=== PATIENT | male | born 1970 | race Caucasian/White ===

== ENCOUNTER 2017-01-10 14:25 | Inpatient (IN) | payer SELFPAY ==
[2017-01-10] MEDS ORDERED: Iodixanol* (CONTRAST) 320 MG/ML 100 ML SDV IV ONE (14:46)
[2017-01-10 15:12] LABS: Hematocrit 45 % (42-52); Mean Corpuscular Volume 87 fL (80-94); Mean Platelet Volume 9 um3 (7.4-10.4); Red Blood Count 5.16 10^6/ul (4.0-5.4); Red Cell Distribution Width 14 % (10.5-15); White Blood Count 6.9 10^3/ul (3.5-10.8)
--- NOTE | 2017-01-10 15:18 | RAD ---
INDICATION: Acute neurologic changes. COMPARISON: None. TECHNIQUE: Contiguous axial sections of the brain were obtained from the skull base to the vertex without contrast. FINDINGS: The ventricles, cisterns and sulci are within normal limits. The bernardo-white matter differentiation is adequately maintained and there is no sulcal effacement. No significant focal abnormality or mass effect is present. There is no evidence for intracranial hemorrhage. No significant focal osseous abnormality is present. The visualized portion of the paranasal sinuses and mastoid air cells appear clear. IMPRESSION: Normal CT of the brain. Normal findings were conveyed to Dr. Larose over the telephone at 1513 hours on January 10, 2017.
[2017-01-10 15:24] LABS: Comments Flag Yes
[2017-01-10 15:28] LABS: Add Diff/Slide Review? Slide Review Added; Hemoglobin 15.1 g/dl (14.0-18.0); Mean Corpuscular HGB Conc 34 g/dl (31-36); Mean Corpuscular Hemoglobin 29 pg (27-31)
[2017-01-10] MEDS ORDERED: Aspirin TAB* 325 MG PO ONE (15:31)
--- NOTE | 2017-01-10 15:36 | RAD ---
CPT II: CPT II Codes: 3100F INDICATION: Expressive aphasia and left-sided weakness. COMPARISON: Same day noncontrast CT of the brain that did not show any acute abnormalities. TECHNIQUE: A CT angiogram of the head and neck was performed with 80 cc of Visipaque 320. Contiguous axial sections were obtained from the thoracic inlet through the [place]. Images were reconstructed in the sagittal, coronal planes and in a 3-D volume rendered format. The distal cervical internal carotid artery diameter is used as the denominater for stenosis measurement. CTA NECK: The common and internal carotid arteries are patent without hemodynamically significant stenosis. Right: Below the bifurcation the common carotid artery measures 7 mm in diameter and the proximal internal carotid artery also measures 7 mm in diameter yielding 0% stenosis. Left: Immediately below the carotid bifurcation the common carotid artery measures 7 mm in diameter and the proximal internal carotid artery ostial measures 7 mm in diameter yielding 0% stenosis. The vertebral arteries are patent without gross abnormality. There is nonspecific straightening of the normal cervical lordosis as well as mild degenerative changes including loss of intervertebral disc height at multiple levels. CTA of the brain: The internal carotid, anterior and middle cerebral arteries appear are patent without high grade stenosis or occlusion. The vertebral, basilar and posterior cerebral arteries appear patent without high grade stenosis or occlusion. The [place] is complete with diminutive but patent bilateral posterior communicating arteries identified. No focal luminal filling defect, aneurysm or vascular malformation is seen. IMPRESSION: Normal CT angiography of the head and neck.
--- NOTE | 2017-01-10 15:41 | RAD ---
INDICATION: Expressive aphasia COMPARISON: None. TECHNIQUE: Single AP portable view of the chest was obtained. FINDINGS: Image quality is compromised due to the relative inferiority of a portable chest x-ray. The heart and mediastinum exhibit normal size and contour. The lungs are grossly clear. There is no evidence of a large pleural effusion. Visualized bones are normal for the patient's age. IMPRESSION: No radiographic evidence for acute cardiopulmonary abnormality on this portable chest x-ray.
[2017-01-10 15:45] LABS: Albumin 4.8 g/dL (3.2-5.2); Calcium 9.2 mg/dL (8.6-10.3); EGFR African American 65.1 (>60); EGFR Non-African American 50.6 (>60); Globulin 2.1 g/dL (2-4); HDL Cholesterol 27.5 mg/dL; Total Bilirubin 0.9 mg/dL (0.2-1.0); Total Protein 6.9 g/dL (6.4-8.9)
[2017-01-10 15:51] LABS: Potassium 6.3 mmol/L (3.5-5.0)
[2017-01-10] MEDS: NS 0.9% 1000 ML* 2,000 ML IV ONE ×2 (15:59→17:02)
[2017-01-10 16:24] LABS: Albumin 4.9 g/dL (3.2-5.2); Calcium 9.3 mg/dL (8.6-10.3); EGFR African American 56.3 (>60); EGFR Non-African American 43.8 (>60); Globulin 2.2 g/dL (2-4); Total Protein 7.1 g/dL (6.4-8.9)
[2017-01-10 16:38] LABS: Total Bilirubin 0.7 mg/dL (0.2-1.0)
[2017-01-10] MEDS ORDERED: Insulin REGULAR(*) 1 UNITS UNIT IV PUSH ONE ×2 (16:52→20:17)
[2017-01-10] MEDS ORDERED: Sodium Polystyrene ORAL.SOL* 15 GM/60 ML BTL PO ONE (16:56)
[2017-01-10] MEDS ORDERED: Sodium Chloride 3% HYPERTONIC* 500 ML IVPB ONE (17:19)
[2017-01-10] MEDS ORDERED: NS 0.9% 1000 ML* 1,000 ML IV ONE ×3 (17:37→20:22)
--- NOTE | 2017-01-10 17:39 | CONSULT ---
Consult Consult: 01/10/17 neurology consult 46 year old RHM, HTN, DM, p/w slowed, abnormal speech today. He also had some motor issues this afternoon; he got into the shower by himself, then had trouble figuring out how to get out of the tub (with either leg), without any clear focal deficit. He denies bulbar, visual, hearing issues, sensory or focal motor problems. He denies bowel or bladder issues; his suggests some recent loose stools, without corky diarrhea or emesis. He went to [facility] yesterday with similar speech complaints, and apparently had a negative head CT and labs (report not available directly but relayed per discussion with ED). His symptoms resolved after about an hour and he was discharged. 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; accompanied in ED by and friends ROS - 10 point review as per hpi, otherwise negative general Examination: no apparent distress, no edema, male of stated age Neurologic Examination Mental Status: alert and oriented; affect reactive, no clear neglect, fluent speech, no corky dysarthria but speech slowed and affected Cranial Nerves: Funduscopy with sharp disc right vs left not well appreciated; II-XII intact save < 1mm pupil asymmetry, both reactive, no ptosis; lindsay full to confrontation Motor: normal bulk, tone and power; initially held left leg out stiffly but had no weakness or tone asymmetry; no drift or tremor Sensory: vibration and touch are intact Reflexes: 2 throughout symmetrically. Plantar responses are equivocal to flexor ; Maya signs absent Coordination: finger to nose is accurate but psychomotor retarded bilaterally Gait: deferred Serologies; returned during eval, w/ Na 119, K 6.3, then 7 on repeat; bun/cr 16/.7; AST 100 ; CBC ok In 03/21, Na 132, aic 14.6, otherwise chem, LFTs were fine Imaging (done at discretion of ED): - Head CT reviewed and negative - CTA head and neck reviewed and negative - Cxr neg Impression: 46 year old uncontrolled DM, p/w psychomotor retarded speech (and ? 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 His 'neuro' issues are likely part of his toxic metabolic picture; there is no evidence of a primary or focal FERRYBOAT OPERATOR HELPER process; correction of his Na should be undertaken slowly to avoid risk of CPM.
[2017-01-10 17:44] LABS: TSH (Thyroid Stimulating Horm) 1.63 mcIU/mL (0.34-5.60)
[2017-01-10] MEDS ORDERED: Dextrose 50% Syringe 50 ML* 25 GM/50 ML SYRINGE IV PUSH PRN (17:50)
[2017-01-10 18:23] LABS: Urine Bilirubin Negative (Negative); Urine Glucose 3+(>=500 mg/dL) (Negative); Urine Nitrite Negative (Negative)
--- NOTE | 2017-01-10 18:45 | ED ---
I, Oh,Angelita, scribed for Todd Larose MD on 01/10/17 at 1444 . Neurological HPI - HPI Summary HPI Summary: This 46 y/o male presents to ED via ambulance for stroke like symptoms since today AM. Positive bilat hand numbness/tingling. Pt is noted with garbled/ stuttered speech. Family member present at bedside reports bilat hand numbness/ tingling and lower extremities weakness, reporting that pt had trouble getting into bathtub on his own this morning. Pt was seen at [facility] yesterday for "garbled speech", where he had CT Brain taken and had CVA r/o. Pt was sent discharged with dx of panic attack and anxiety. PMHx includes DM type II and HTN. Pt is nonsmoker and nondrinker. 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 Onset/Duration: Sudden Onset Timing: Constant Neurological Deficit Location: Generalized Character: Numbness/Tingling - bilat hands, Motor Weakness, Impaired Speech - Allergy/Home Medications Allergies/Adverse Reactions: Allergies Allergy/AdvReac Type Severity Reaction Status Date / Time No Known Allergies Allergy Verified 01/10/17 15:14 Home Medications: Home Medications Ibuprofen 800 mg PO PRN 01/10/17 [History] Lisinopril/HCTZ 06/17.5(NF) [Zestoretic 06/17.5(NF)] 1 tab PO DAILY 01/10/17 [ History Confirmed 01/10/17] Metformin HCl [Glucophage] 500 mg PO BID 01/10/17 [History Confirmed 01/10/17] Multiple Vitamins W/ Minerals [Multivitamin Adults] 1 tab PO DAILY 01/10/17 [ History Confirmed 01/10/17] PMH/Surg Hx/FS Hx/Imm Hx Endocrine/Hematology History: Reports: Hx Diabetes Cardiovascular History: Reports: Hx Hypertension - Family History Known Family History: Positive: Hypertension - Social History Alcohol Use: None Hx Substance Use: No Substance Use Type: Reports: None Hx Tobacco Use: No Smoking Status (MU): Never Smoked Tobacco Review of Systems Negative: Fever Positive: Weakness - BLE and bilat hands, Paresthesia - numbness/tingling at bilat hands, Slurred Speech All Other Systems Reviewed And Are Negative: Yes Physical Exam - Summary Physical Exam Summary: The patient is well-nourished in no acute distress and in no acute pain. The skin is warm and dry and skin color reflects adequate perfusion. HEENT: The head is normocephalic and atraumatic. The pupils are equal and reactive. The conjunctivae are clear and without drainage. Nares are patent and without drainage. Mouth reveals moist mucous membranes and the throat is without erythema and exudate. The external ears are intact. The ear canals are patent and without drainage. The tympanic membranes are intact. EOMI. Neck is supple with full range of motion and non-tender. There are no carotid bruits. There is no neck vein distension. Respiratory: Chest is non-tender. Lungs are clear to auscultation and breath sounds are symmetrical and equal. Cardiovascular: Hear is regular rate and rhythm. There is no murmur or rub auscultated. There is no peripheral edema and pulses are symmetrical and equal. Abdomen: The abdomen is obese, soft and non-tender. There are normal bowel sounds heard in all four quadrants and there is no organomegaly palpated. Musculoskeletal: There is no back pain noted. Extremities are non-tender with full range of motion. There is good capillary refill. There is no peripheral edema or calf tenderness elicited. Negative babinski. Neurological: Patient is alert and oriented to person and time. Mild, inconsistent weakness with motor strength with LUE and LLE. Mild difficulty with LEFT finger to nose. Normal ankle to heel. Cranial nerves III-XII are grossly intact. Expressive aphasia with stuttered speech. No facial asymmetry. Stutters some words. Psychiatric: The patient has an appropriate affect and does not exhibit any anxiety or depression. Triage Information Reviewed: Yes Vital Signs On Initial Exam: Initial Vitals BP 167/96 01/10/17 14:31 Vital Signs Reviewed: Yes Diagnostics - Vital Signs Vital Signs Temp Pulse Resp BP Pulse Ox 01/10/17 16:30 97 21 149/84 95 01/10/17 16:00 104 24 132/86 94 01/10/17 15:30 105 20 143/94 95 01/10/17 15:20 94 01/10/17 15:12 27 156/98 01/10/17 15:11 98.4 F 98 20 155/98 94 01/10/17 15:02 102 32 93 01/10/17 14:40 103 23 94 01/10/17 14:38 95 32 143/84 95 01/10/17 14:33 111 89 01/10/17 14:31 167/96 - Laboratory Lab Results: Lab Results 01/10/17 01/10/17 01/10/17 Range/Units 15:04 15:04 15:04 WBC 6.9 (3.5-10.8) 10^3/ul RBC 5.16 (4.0-5.4) 10^6/ul Hgb 15.1 (14.0-18.0) g/dl Hct 45 (42-52) % MCV 87 (80-94) fL MCH 29 (27-31) pg MCHC 34 (31-36) g/dl RDW 14 (10.5-15) % Plt Count 183 (150-450) 10^3/ul MPV 9 (7.4-10.4) um3 Neut % (Auto) 57.7 (38-83) % Lymph % (Auto) 31.3 (25-47) % Routt % (Auto) 7.6 (1-9) % Eos % (Auto) 1.7 (0-6) % Baso % (Auto) 1.7 (0-2) % Absolute Neuts (auto) 4.0 (1.5-7.7) 10^3/ul Absolute Lymphs (auto) 2.2 (1.0-4.8) 10^3/ul Absolute Monos (auto) 0.5 (0-0.8) 10^3/ul Absolute Eos (auto) 0.1 (0-0.6) 10^3/ul Absolute Basos (auto) 0.1 (0-0.2) 10^3/ul Absolute Nucleated RBC 0.02 10^3/ul Nucleated RBC % 0.3 Sodium 119 L* (133-145) mmol/L Potassium 6.3 H* (3.5-5.0) mmol/L Chloride 91 L (101-111) mmol/L Carbon Dioxide 18 L (22-32) mmol/L Anion Gap 10 (2-11) mmol/L BUN 16 (6-24) mg/dL Creatinine 1.50 H (0.67-1.17) mg/dL Est GFR ( Amer) 65.1 (>60) Est GFR (Non-Af Amer) 50.6 (>60) BUN/Creatinine Ratio 10.7 (8-20) Glucose 228 H (70-100) mg/dL POC Glucose (mg/dL) (74-106) mg/dL Lactic Acid 3.3 H* (0.5-2.0) mmol/L Calcium 9.2 (8.6-10.3) mg/dL Total Bilirubin 0.90 (0.2-1.0) mg/dL AST 79 H (13-39) U/L ALT 23 (7-52) U/L Alkaline Phosphatase 57 (34-104) U/L Troponin I 0.00 (<0.04) ng/mL Total Protein 6.9 (6.4-8.9) g/dL Albumin 4.8 (3.2-5.2) g/dL Globulin 2.1 (2-4) g/dL Albumin/Globulin Ratio 2.3 (1-3) Triglycerides 4675 mg/dL Cholesterol 349 mg/dL LDL Cholesterol mg/dL HDL Cholesterol 27.5 mg/dL Lipase (11.0-82.0) U/L TSH 1.63 (0.34-5.60) mcIU/mL Cortisol 13.99 mcg/dL Blood Type Antibody Screen 01/10/17 01/10/17 01/10/17 Range/Units 15:04 15:33 16:00 WBC (3.5-10.8) 10^3/ul RBC (4.0-5.4) 10^6/ul Hgb (14.0-18.0) g/dl Hct (42-52) % MCV (80-94) fL MCH (27-31) pg MCHC (31-36) g/dl RDW (10.5-15) % Plt Count (150-450) 10^3/ul MPV (7.4-10.4) um3 Neut % (Auto) (38-83) % Lymph % (Auto) (25-47) % Routt % (Auto) (1-9) % Eos % (Auto) (0-6) % Baso % (Auto) (0-2) % Absolute Neuts (auto) (1.5-7.7) 10^3/ul Absolute Lymphs (auto) (1.0-4.8) 10^3/ul Absolute Monos (auto) (0-0.8) 10^3/ul Absolute Eos (auto) (0-0.6) 10^3/ul Absolute Basos (auto) (0-0.2) 10^3/ul Absolute Nucleated RBC 10^3/ul Nucleated RBC % Sodium 120 L (133-145) mmol/L Potassium 7.0 H* (3.5-5.0) mmol/L Chloride 91 L (101-111) mmol/L Carbon Dioxide 19 L (22-32) mmol/L Anion Gap 10 (2-11) mmol/L BUN 16 (6-24) mg/dL Creatinine 1.70 H (0.67-1.17) mg/dL Est GFR ( Amer) 56.3 (>60) Est GFR (Non-Af Amer) 43.8 (>60) BUN/Creatinine Ratio 9.4 (8-20) Glucose 240 H (70-100) mg/dL POC Glucose (mg/dL) 297 H (74-106) mg/dL Lactic Acid (0.5-2.0) mmol/L Calcium 9.3 (8.6-10.3) mg/dL Total Bilirubin 0.70 (0.2-1.0) mg/dL AST 102 H (13-39) U/L ALT 25 (7-52) U/L Alkaline Phosphatase 72 (34-104) U/L Troponin I (<0.04) ng/mL Total Protein 7.1 (6.4-8.9) g/dL Albumin 4.9 (3.2-5.2) g/dL Globulin 2.2 (2-4) g/dL Albumin/Globulin Ratio 2.2 (1-3) Triglycerides mg/dL Cholesterol mg/dL LDL Cholesterol mg/dL HDL Cholesterol mg/dL Lipase 112 H (11.0-82.0) U/L TSH (0.34-5.60) mcIU/mL Cortisol mcg/dL Blood Type O Positive Antibody Screen Negative Result Diagrams: 01/10/17 15:04 01/10/17 16:00 Lab Statement: Any lab studies that have been ordered have been reviewed, and results considered in the medical decision making process. - Radiology CXR Xray Interpretation: No Acute Changes Radiology Interpretation Completed By: Radiologist - CT CTA CT Interpretation: No Acute Changes CT Interpretation Completed By: Radiologist Brain CT Interpretation: No Acute Changes CT Interpretation Completed By: Radiologist NIH Scale - NIH Scale Level of Consciousness: Alert/Keenly Responsive Ask Patient the Month and His/Her Age: Both Correct Ask Pt to Open/Close Eyes and Survey Engineer/Release Non-Paretic Hand: Both Correctly Best Gaze (Only Horizontal Eye Movement): Normal Visual Field Testing: No Visual Loss Facial Paresis-Pt to Smile & Close Eyes or Grimace Symmetry: Normal/Symmetrical Motor Function - Right Arm: No Drift-Holds 10 Seconds Motor Function - Left Arm: No Drift-Holds 10 Seconds Motor Function - Right Leg: No Drift-Holds 10 Seconds Motor Function - Left Leg: No Drift-Holds 10 Seconds Limb Ataxia-Must be out of Proportion to Weakness Present: Present in One Limb Sensory (Use Pinprick to Test Arms/Legs/Trunk/Face): Normal Best Language (Describe Picture, Name Items): Some Loss Dysarthria (Read Several Words): Slurs Some Words Extinction and Inattention: No Abnormality Total Score: 3 Re-Evaluation - Re-Evaluation First Eval Re-Evaluation Time: 15:16 Comment: Persistent LEFT finger to nose. Course/Dx - Course Assessment/Plan: This 46 y/o male presents to ED via ambulance for "stroke-like symptoms" since today AM. Pt was seen yesterday at [facility] for garbled speech and discharged home with dx of anxiety attack and normal CT. Pt presents today with feeling "weak on legs" and bilat hands numbness/tingling. Upon examination pt showed incosistent weakness at LUE and LLE. NIH scale was indicated 3. Silke bernardo was called to r/o any CVA. CT imagings are indicated benign. Blood work indicated hyperkalemia with 7.0 potassium and 119 sodium. Medical records from [facility] is reviewed, and pt's potassium and sodium levels were wnl yesterday. - Differential Dx Differential Diagnoses Neuro: Positive: Cerebrovascular Accident, Coronary Artery Disease, Dysrhythmia, Medication Reaction, Metabolic Abnormality, Transient Ischemic Attack, Other - dehydration, hypertriglyceridemia, - Diagnoses Provider Diagnoses: Hyperkalemia, Hyponatremia, Hyperglycemia due to type 2 diabetes mellitus During the Visit The Following Alert/Code Occurred: Silke Mejias - called at 1440 PM - Physician Notifications Discussed Care of Patient With: Dr. Gordon (Neurologist) at 1516 PM. -- tPA contraindicated. Instructed by Provider To: MD Will See In ED - Critical Care Time Critical Care Time: 30-74 min - 30 minutes Discharge - Discharge Plan Condition: Critical Disposition: ADMITTED TO [facility] documentation as recorded by the Gumaro nogueira Soohyun accurately reflects the service I personally performed and the decisions made by me, Todd Larose MD.
[2017-01-10 20:13] LABS: Calcium 8.2 mg/dL (8.6-10.3); EGFR African American 66.1 (>60); EGFR Non-African American 51.4 (>60); Potassium 8.4 mmol/L (3.5-5.0)
[2017-01-10] MEDS ORDERED: Dextrose 50% Syringe 50 ML* 25 GM/50 ML SYRINGE IV PUSH ONE (20:16)
[2017-01-10] MEDS ORDERED: Calcium Gluconate INJ* 1 GM in NS 0.9% 50 ML* 50 ML IVPB ONE (20:16)
--- NOTE | 2017-01-10 20:30 | PN ---
Progress Note - Progress Note Note: Spoke with Dr. Veras about case. He agrees that the lipemia of patient's blood is making interpretation of electrolyte abnormalities difficult to impossible. Repeat K+ 8.4 per lab, plan to check EKG now. If EKG without acute change, then labs are likely unreliable. Plan to repeat glucose, insulin , calcium gluconate, and kayexalate. Rito recommends continuing with IV hydration with plan for 3L NS now with close monitoring of mental status. If blood remains too lipemic, can start insulin gtt with dextrose infusion.
[2017-01-10] MEDS: NS 0.9% 1000 ML* 1,000 ML IV SCH ×3 (20:36→21:29)
--- NOTE | 2017-01-10 21:03 | HP ---
HOSPITAL MEDICINE HISTORY AND PHYSICAL: DATE OF ADMISSION: 01/10/17 PRIMARY CARE PROVIDER: Dr. Harper. ATTENDING PHYSICIAN: Saul Vazquez MD* (dictation provided by Anne Nunez NP) . CHIEF COMPLAINT: Difficulty speaking and weakness. HISTORY OF PRESENT ILLNESS: Mr. Medrano is a 46-year-old male with past medical history of hypertension and diabetes who presented to the hospital today with concern for difficulty speaking and feeling weak. Mr. Medrano states that his symptoms began yesterday morning. He had been in his normal state of health prior to this. Yesterday morning when he awoke, he was unable to speak. He reports writing words down so that he could communicate with his . He also felt weak and very tired and described feeling "too tired to even speak." Later that morning, he had improved somewhat and he was able to make some clear speech, however, they did go to [facility] for evaluation. At [facility] the patient had a CT of the brain which showed no acute abnormality, had laboratory values including a basic metabolic panel that showed no acute abnormalities. Based on this and the ongoing resolution of his symptoms, the patient was discharged from the emergency room. The patient's states that in the morning when he awoke, he again had the same problem with inability to speak. She encouraged him to take a shower in hopes that it would "wear off." However, when he was going to get out of the shower, he was too weak to get out independently and his had to help him and help him get dressed. They got in the car to come to [facility] for evaluation. On the way here, the patient suddenly became very weak in his legs and again had difficulty speaking. There is no report of any other illnesses or concerns. The patient has had no fever. No chills. No cough or shortness of breath. No chest pain. No nausea. No abdominal pain. No diarrhea. In the emergency room, Mr. Medrano is able to speak, though he has some difficulty initiating speech. He is appropriate in his speech and is not evidencing any confusion. He moves all extremities equally. He was seen in consultation by Neurology who felt that this was not a neurological event. CT of brain and head CTA were repeated, both of which were negative. Quite surprisingly, the patient's lab values were markedly abnormal. Yesterday at [facility], the patient had all normal values. Today on arrival, his sodium was 119, potassium 6.3, creatinine 1.5, lactic acid 3.3, triglyceride level 4675. These labs were repeated 1 hour later showing a sodium of 120, potassium 7.0, and creatinine 1.70. I reviewed these results with the lab who say that the patient's blood was overtly and severely lipemic. PAST MEDICAL HISTORY: 1. Herniated disk. 2. Hypertension. 3. Jrw-vhjlfpr-wjbfyoqtd diabetes. MEDICATIONS: 1. Lisinopril/hydrochlorothiazide 06/17.5 one tab p.o. daily. 2. Metformin 500 mg p.o. b.i.d. 3. Multiple vitamin with mineral 1 tab p.o. daily. 4. Ibuprofen 800 mg p.o. p.r.n. ALLERGIES: No known drug allergies. FAMILY HISTORY: Reports there is history of hypertension, diabetes, heart disease, and cancer. The patient's father related to bone cancer. SOCIAL HISTORY: No report of alcohol, tobacco, or drug use. The patient lives with his who is the healthcare proxy. REVIEW OF SYSTEMS: A 14-point review of systems was completed with Mr. Medrano and all those mentioned above were negative. PHYSICAL EXAMINATION GENERAL: Mr. Medrano is lying in the bed. He does not appear to be in any acute distress. VITAL SIGNS: Temperature 98.2, pulse rate 95, respiratory rate 16, blood pressure 148/88. LUNGS: Clear to auscultation bilaterally with no accessory muscle use and good aeration. HEART: S1, S2. No murmur, rub, or gallop and regular. ABDOMEN: Soft, nontender with bowel sounds positive x4. EXTREMITIES: No cyanosis or edema. NEUROLOGIC: He is alert. He is oriented x3. He moves all extremities equally. There is no facial asymmetry or focal weakness. The patient's speech is pressured, but clear. SKIN: Intact. LABORATORY DATA AND DIAGNOSTIC STUDIES: Most recent data shows sodium 120, potassium 7.0, chloride 91, serum bicarbonate 19, BUN 16, creatinine 1.70, glucose 240, lactic acid 3.3. Lipase 112. TSH 1.63. WBC 6.9, hemoglobin 15.1 , hematocrit 45, platelet count 183. Normal CT of the brain. Chest x-ray: "No radiographic evidence for acute cardiopulmonary abnormality on this portable chest x-ray." Head CTA: "Normal CT angiography of the head and neck." EKG shows a sinus rhythm. There is no evidence of ischemia. ASSESSMENT: Mr. Medrano is a 46-year-old male who has had over 24 hours of intermittent issue with inability to speak and profound weakness who presents today to the hospital and was found to have gross electrolyte abnormalities. Our plans are for inpatient admission to the intensive care unit for the followin. Electrolyte abnormalities: The patient's electrolyte abnormalities are very odd. He apparently had normal labs yesterday at [facility] and yet today presents with hyponatremia and hyperkalemia with acute kidney injury. I have spoken to the laborer beam house who reported that the patient's specimen was grossly lipemic and that this can affect the values. I note that the patient had IV fluids in the emergency room and with this, his sodium did increase from 119 to 120. Therefore, I feel comfortable continuing with normal saline hydration given that his overall problem appears to be one of hydration given the acute kidney injury and concomitant hyperkalemia. I am hoping with hydration that his blood sample will become less lipemic and that the results from the analyzer can be more accurate. I considered treating the patient with hypertonic saline given his concern for neurologic symptoms; however, the patient was noted to have these neurological symptoms yesterday when his sodium was reported as normal. I think it is safe and prudent to continue with regular saline and to recheck his labs in 2 hours and frequently thereafter to assure that his sodium rises in a safe and appropriate fashion. For his hyperkalemia, the patient has already received Kayexalate, calcium gluconate, and dextrose in the emergency department. We will be checking his labs again in 2 hours. In terms of other etiologies, multiple lab studies have been added on to his labs including cortisol out of concern for adrenal insufficiency, serum osmolality, though the patient denies any untoward ingestions that were toxic. I have added on TSH as well as a urine random sodium and urine random osmolality. Further workup will be based dependent on the followup clinical course. 2. Altered mental status, difficulty speaking, and weakness: The patient was seen in consultation by Dr. Gordon from Neurology who found no focal neurological deficits and suspect that his symptoms were related to his electrolyte abnormalities. 3. Hypertension: Plan to hold lisinopril/hydrochlorothiazide and monitor BP closely in the ICU as these medications could cause electrolyte abnormalities 4. Type 2 diabetes: Plan to hold metformin and he will have blood glucoses q.a.c. with lispro sliding scale. 5. DVT prophylaxis with heparin subcu. 6. Code status is full code. TIME SPENT: Approximately 60 minutes were spent in the admission of this patient, more than half time spent with the patient at the bedside reviewing the events leading up to this hospitalization, performing the physical examination, and reviewing my plan of care. ANNE NUNEZ NP CC: Dr. Harper [id number]/[facility] #: [id number] MICAELA
[2017-01-10 21:37] LABS: BUN/Creatinine Ratio 20.3 (8-20)
[2017-01-10 21:40] LABS: BUN/Creatinine Ratio 21.3 (8-20)
[2017-01-10 21:41] LABS: BUN/Creatinine Ratio 18.8 (8-20)
[2017-01-10] MEDS: Heparin VIAL(*) 5000 UNITS/ML VIAL (FIVE THOUSAND) SUBCUT SCH (22:46)
[2017-01-10] MEDS: Gemfibrozil TAB* 600 MG PO SCH (22:46)
[2017-01-10 23:06] LABS: BUN/Creatinine Ratio 16.2 (8-20); Calcium 7.3 mg/dL (8.6-10.3); EGFR African American 162.2 (>60); EGFR Non-African American 126.1 (>60); Potassium 4.9 mmol/L (3.5-5.0)
[2017-01-10 23:36] LABS: Hematocrit 40 % (42-52); Mean Corpuscular Volume 87 fL (80-94); Mean Platelet Volume 9 um3 (7.4-10.4); Red Blood Count 4.59 10^6/ul (4.0-5.4); Red Cell Distribution Width 14 % (10.5-15); White Blood Count 6.8 10^3/ul (3.5-10.8)
[2017-01-10 23:49] LABS: Comments Flag Yes
[2017-01-10 23:51] LABS: Hemoglobin 13.4 g/dl (14.0-18.0); Mean Corpuscular Hemoglobin 29 pg (27-31)
[2017-01-10 23:52] LABS: Mean Corpuscular HGB Conc 34 g/dl (31-36)
[2017-01-11 04:55] LABS: Hematocrit 39 % (42-52); Mean Corpuscular Volume 87 fL (80-94); Mean Platelet Volume 9 um3 (7.4-10.4); Red Blood Count 4.54 10^6/ul (4.0-5.4); Red Cell Distribution Width 14 % (10.5-15); White Blood Count 5.9 10^3/ul (3.5-10.8)
[2017-01-11 04:56] LABS: Comments Flag Yes
[2017-01-11 04:59] LABS: Hemoglobin 13.3 g/dl (14.0-18.0); Mean Corpuscular HGB Conc 34 g/dl (31-36); Mean Corpuscular Hemoglobin 29 pg (27-31)
[2017-01-11 05:22] LABS: Albumin 3.2 g/dL (3.2-5.2); BUN/Creatinine Ratio 14.5 (8-20); Calcium 7.4 mg/dL (8.6-10.3); EGFR African American 180.4 (>60); EGFR Non-African American 140.3 (>60); Potassium 4.1 mmol/L (3.5-5.0); Total Bilirubin 0.7 mg/dL (0.2-1.0); Total Protein 5.2 g/dL (6.4-8.9)
[2017-01-11] MEDS: NS 0.9% 1000 ML* 1,000 ML IV SCH (05:39)
[2017-01-11] MEDS ORDERED: Dextrose 50% Syringe 50 ML* 25 GM/50 ML SYRINGE IV PUSH PRN (05:45)
[2017-01-11] MEDS: Insulin LISPRO* 1 UNITS UNIT SUBCUT SCH ×5 (06:07→21:10)
[2017-01-11] MEDS: Heparin VIAL(*) 5000 UNITS/ML VIAL (FIVE THOUSAND) SUBCUT SCH ×3 (06:07→21:10)
[2017-01-11] MEDS: Acetaminophen ADULT LIQ* 650 MG/20.3 ML UDC PO PRN ×2 (06:40→14:06)
[2017-01-11] MEDS ORDERED: Insulin LISPRO* 1 UNITS UNIT SUBCUT SCH (07:30)
--- NOTE | 2017-01-11 07:41 | RAD ---
INDICATION: Acute neurologic changes COMPARISON: CT brain January 10, 2017 TECHNIQUE: Noncontrast axial source images were obtained at 2312 hours from the skull base to the vertex. FINDINGS: Ventricles/sulci: The ventricles and cisterns are normal in size and configuration for age. Brain parenchyma: There is no focal parenchymal finding, evidence of intracranial mass, or intracranial mass effect. Intracranial hemorrhage:None. Extra-axial spaces: There are no abnormal extra axial fluid collections or evidence of extra-axial mass. Calvarium: There is no calvarial fracture or other calvarial abnormality. Scalp: There is no evidence of scalp or extracalvarial soft tissue abnormality. Paranasal sinuses/mastoid: The paranasal sinuses and mastoid air cells are clear. Other: None. IMPRESSION: No acute intracranial findings or interval changes
--- NOTE | 2017-01-11 09:26 | PN ---
Subjective Date of Service: 01/11/17 Interval History: Patient seen and examined at bedside. Pt states that he is achy all over, no other complaints except for his slow speech. Denies fever, chills, shortness of breath, chest discomfort, N/V/D. Cardiac Monitoring: Sinus rhythm, rate 80's. Family History: Unchanged from Admission Social History: Unchanged from Admission Past Medical History: Unchanged from Admission Objective Active Medications: Acetaminophen (Tylenol Adult Liq*) 650 mg PO Q6H PRN Reason: pain/fever Dextrose (D50w Syringe 50 Ml*) 12.5 gm IV PUSH .FOR FS < 60 - SS PRN Reason: FS < 60 Gemfibrozil (Lopid Tab*) 600 mg PO BID [facility] Heparin Sodium (Porcine) (Heparin Vial(*)) 5,000 units SUBCUT Q8HR [facility] Insulin Human Lispro (Humalog*) 0 units SUBCUT Q6HR [facility] Reason: Protocol Vital Signs 01/10/17 01/10/17 01/10/17 17:30 17:41 17:53 Temperature 98.2 F Pulse Rate 101 95 96 Respiratory 17 16 22 Rate Blood Pressure 148/88 148/88 (mmHg) O2 Sat by Pulse 95 97 Oximetry 01/10/17 01/10/17 01/10/17 18:03 18:06 18:14 Temperature 98.5 F Pulse Rate 90 91 Respiratory 19 24 Rate Blood Pressure 155/87 138/95 (mmHg) O2 Sat by Pulse 97 96 Oximetry 01/10/17 01/10/17 01/10/17 18:15 18:49 19:00 Temperature Pulse Rate 94 88 Respiratory 29 22 14 Rate Blood Pressure 138/95 139/86 (mmHg) O2 Sat by Pulse 97 95 Oximetry 01/10/17 01/10/17 01/10/17 20:00 21:00 22:00 Temperature 98.6 F Pulse Rate 85 83 85 Respiratory 16 20 16 Rate Blood Pressure 135/90 142/90 151/86 (mmHg) O2 Sat by Pulse 95 97 97 Oximetry 01/10/17 01/10/17 01/11/17 23:00 23:38 00:00 Temperature 98.2 F Pulse Rate 79 79 Respiratory 16 22 16 Rate Blood Pressure 149/90 145/97 (mmHg) O2 Sat by Pulse 97 94 Oximetry 01/11/17 01/11/17 01/11/17 00:01 00:12 00:30 Temperature Pulse Rate 79 80 80 Respiratory 17 17 18 Rate Blood Pressure 131/85 129/87 (mmHg) O2 Sat by Pulse 94 94 95 Oximetry 01/11/17 01/11/17 01/11/17 01:00 01:30 02:00 Temperature Pulse Rate 80 81 82 Respiratory 17 17 18 Rate Blood Pressure 138/83 126/93 127/86 (mmHg) O2 Sat by Pulse 94 95 95 Oximetry 01/11/17 01/11/17 01/11/17 02:30 03:00 03:30 Temperature Pulse Rate 78 76 80 Respiratory 17 18 22 Rate Blood Pressure 125/88 128/79 134/88 (mmHg) O2 Sat by Pulse 94 95 97 Oximetry 01/11/17 01/11/17 01/11/17 04:00 04:30 05:00 Temperature 98.5 F Pulse Rate 78 85 81 Respiratory 18 19 19 Rate Blood Pressure 134/91 144/88 137/84 (mmHg) O2 Sat by Pulse 94 96 96 Oximetry 01/11/17 01/11/17 01/11/17 05:30 06:00 06:30 Temperature Pulse Rate 79 81 83 Respiratory 18 25 19 Rate Blood Pressure 131/83 143/96 145/92 (mmHg) O2 Sat by Pulse 96 96 97 Oximetry 01/11/17 01/11/17 01/11/17 07:00 07:30 07:54 Temperature 98.3 F Pulse Rate 79 85 Respiratory 19 19 Rate Blood Pressure 145/85 133/90 (mmHg) O2 Sat by Pulse 97 97 Oximetry 01/11/17 01/11/17 08:00 08:30 Temperature Pulse Rate 78 81 Respiratory 19 18 Rate Blood Pressure 128/89 136/88 (mmHg) O2 Sat by Pulse 96 96 Oximetry Oxygen Devices in Use Now: None Appearance: NAD, sitting up in a chair. 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 Medrano is a 46 yo male with PMH significant for HTN and DM who presented to the hospital with intermittent issues with speech and weakness. - Patient Problems (1) Weakness Code(s): R53.1 - WEAKNESS SNOMED Code(s): 19157704 Comment: - Left sided weakness overnight, now with slight left hand industrial automation specialist weakness - Continues to have slow but clear speech - Repeat brain CT overnight with no acute findings - Brain MRI pending this morning (2) Speech abnormality Comment: - Continues to have slow but clear speech - Able to pass swallow eval (3) Electrolyte abnormality Code(s): E87.8 - OTH DISORDERS OF ELECTROLYTE AND FLUID BALANCE, NEC SNOMED Code(s): 670532149 Comment: - Hyperkalemia - Resolved - Hynponatremia - Improved after IVFs (4) LADAN (acute kidney injury) Code(s): N17.9 - ACUTE KIDNEY FAILURE, UNSPECIFIED SNOMED Code(s): 41029903 Comment: - Resolved after IVFs (5) HTN (hypertension) Code(s): I10 - ESSENTIAL (PRIMARY) HYPERTENSION SNOMED Code(s): 61442195 Comment: - Normotensive - Continue to hold lisinopril/HCTZ (6) Diabetes Code(s): E11.9 - TYPE 2 DIABETES MELLITUS WITHOUT COMPLICATIONS SNOMED Code(s) : 12413447 Comment: - Glucose checks AC/HS - Hold home metformin - Will check HgA1C - Continue Lispro SS (7) DVT prophylaxis Code(s): NEJ4481 - SNOMED Code(s): 272775042 Comment: - SQ heparin (8) Full code status Code(s): Z78.9 - OTHER SPECIFIED HEALTH STATUS SNOMED Code(s): 456999978 Status and Disposition: Inpatient. Discharge to home when medically stable.
[2017-01-11] MEDS: Gemfibrozil TAB* 600 MG PO SCH ×2 (09:36→20:30)
--- NOTE | 2017-01-11 10:44 | RAD ---
HISTORY: Dysarthria, left-sided weakness COMPARISONS: Head CT dated January 11, 2016 TECHNIQUE: The following sequences were obtained of the head: Sagittal T1-weighted images, axial T2-weighted images, axial FLAIR images, axial susceptibility weighted images, axial T1-weighted images. Additionally, axial diffusion-weighted images were obtained with calculated apparent diffusion coefficients. FINDINGS: HEMORRHAGE/INFARCT: There is no hemorrhage or acute infarct. MASSES/SHIFT: There is no mass or shift. EXTRA-AXIAL SPACES/MENINGES: There are no extra-axial fluid collections. SULCI AND VENTRICLES: The sulci and ventricles are normal in size and position for the patient's stated age. CEREBRUM: There are no focal parenchymal abnormalities. BRAINSTEM: There are no focal parenchymal abnormalities. CEREBELLUM: There are no focal parenchymal abnormalities. The cerebellar tonsils are normal in size and position. SELLA: The sella is normal. PINEAL: The pineal region is clear. CP ANGLE/TEMPORAL BONES: The labyrinthine structures are grossly normal. VESSELS: Normal flow-voids are noted within the visualized vertebral vasculature. DIFFUSION ABNORMALITIES: There are no diffusion abnormalities. PARANASAL SINUSES/MASTOIDS: The paranasal sinuses are clear. ORBITS: The orbits are unremarkable. BONES AND SOFT TISSUE: No bone or soft tissue abnormalities are noted. OTHER: None IMPRESSION: NORMAL BRAIN. NO RESTRICTED DIFFUSION TO SUGGEST ACUTE INFARCT.
[2017-01-11 11:59] LABS: HDL Cholesterol 20.1 mg/dL
[2017-01-11] MEDS ORDERED: Insulin LISPRO* 1 UNITS UNIT SUBCUT ONE (18:22)
[2017-01-11] MEDS ORDERED: Al Hydrox/Mg Hydrox/Simet LIQ* 30 ML UDC PO PRN (18:53)
[2017-01-12] MEDS: Acetaminophen ADULT LIQ* 650 MG/20.3 ML UDC PO PRN ×2 (03:00→15:13)
[2017-01-12] MEDS: Heparin VIAL(*) 5000 UNITS/ML VIAL (FIVE THOUSAND) SUBCUT SCH ×4 (06:10→21:30)
[2017-01-12 06:13] LABS: BUN/Creatinine Ratio 14.1 (8-20); Blood Urea Nitrogen 9 mg/dL (6-24); CO2 Carbon Dioxide 19 mmol/L (22-32); Calcium 8.4 mg/dL (8.6-10.3); Chloride 103 mmol/L (101-111); EGFR African American 173.9 (>60); EGFR Non-African American 135.2 (>60); Glucose 193 mg/dL (70-100); Sodium 131 mmol/L (133-145)
[2017-01-12] MEDS: Insulin LISPRO* 1 UNITS UNIT SUBCUT SCH ×4 (07:34→21:27)
[2017-01-12] MEDS: Gemfibrozil TAB* 600 MG PO SCH ×2 (08:20→21:14)
--- NOTE | 2017-01-12 09:11 | PN ---
Subjective Date of Service: 01/12/17 Interval History: Patient seen and examined at bedside. Pt states that he had an episode of LE weakness overnight, when asked further about this his reports left LE weakness. Pt states that he continues to have trouble with his speech and getting words out. Pt is noted to be able to put 4 and 5 words together this morning, compared to 1 word at a time yesterday. Pt denies episodes of chest discomfort since last evening after dinner. Denies fever, chills, shortness of breath, chest discomfort, N/V/D. Tape Duplicator: Sinus rhythm, rate 70-80's. Family History: Unchanged from Admission Social History: Unchanged from Admission Past Medical History: Unchanged from Admission Objective Active Medications: Acetaminophen (Tylenol Adult Liq*) 650 mg PO Q6H PRN Reason: pain/fever Al Hydrox/Mg Hydrox/Simethicone (Maalox Plus*) 30 ml PO Q6H PRN Reason: INDIGESTION Dextrose (D50w Syringe 50 Ml*) 12.5 gm IV PUSH .FOR FS < 60 - SS PRN Reason: FS < 60 Gemfibrozil (Lopid Tab*) 600 mg PO BID [facility] Heparin Sodium (Porcine) (Heparin Vial(*)) 5,000 units SUBCUT Q8HR [facility] Insulin Human Lispro (Humalog*) 0 units SUBCUT ACHS [facility] Reason: Protocol Vital Signs 01/11/17 01/11/17 01/11/17 09:30 10:00 10:47 Temperature Pulse Rate 87 78 Respiratory 16 17 14 Rate Blood Pressure 138/88 (mmHg) O2 Sat by Pulse 96 96 Oximetry 01/11/17 01/11/17 01/11/17 11:00 11:52 12:00 Temperature 98.0 F Pulse Rate 88 94 98 Respiratory 18 20 22 Rate Blood Pressure 147/91 145/90 (mmHg) O2 Sat by Pulse 96 96 96 Oximetry 01/11/17 01/11/17 01/11/17 12:30 13:00 13:30 Temperature Pulse Rate 85 76 98 Respiratory 17 19 17 Rate Blood Pressure 130/77 129/83 148/85 (mmHg) O2 Sat by Pulse 96 95 96 Oximetry 01/11/17 01/11/17 01/11/17 14:00 14:30 15:00 Temperature Pulse Rate 91 86 92 Respiratory 19 20 23 Rate Blood Pressure 135/80 135/84 134/87 (mmHg) O2 Sat by Pulse 96 97 96 Oximetry 01/11/17 01/11/17 01/11/17 15:30 16:00 16:30 Temperature 98.2 F Pulse Rate 88 85 85 Respiratory 20 23 20 Rate Blood Pressure 138/82 138/87 132/81 (mmHg) O2 Sat by Pulse 95 97 97 Oximetry 01/11/17 01/11/17 01/11/17 17:00 18:00 19:00 Temperature Pulse Rate 85 81 87 Respiratory 22 23 25 Rate Blood Pressure 140/82 138/94 136/79 (mmHg) O2 Sat by Pulse 97 97 96 Oximetry 01/11/17 01/11/17 01/11/17 19:58 20:00 21:00 Temperature 98.4 F Pulse Rate 82 82 Respiratory 22 19 Rate Blood Pressure 132/87 137/84 (mmHg) O2 Sat by Pulse 95 95 Oximetry 01/11/17 01/11/17 01/12/17 23:53 23:59 03:00 Temperature 98 F 98.5 F Pulse Rate 85 89 Respiratory 18 24 Rate Blood Pressure 138/86 138/86 146/99 (mmHg) O2 Sat by Pulse 96 97 Oximetry 01/12/17 01/12/17 01/12/17 05:37 05:42 07:23 Temperature 99.4 F Pulse Rate 79 Respiratory 20 Rate Blood Pressure 131/92 131/92 144/94 (mmHg) O2 Sat by Pulse 95 Oximetry 01/12/17 01/12/17 01/12/17 07:27 07:42 07:45 Temperature Pulse Rate Respiratory 16 16 16 Rate Blood Pressure (mmHg) O2 Sat by Pulse 94 Oximetry 01/12/17 01/12/17 07:59 08:00 Temperature 97.4 F Pulse Rate Respiratory 18 Rate Blood Pressure 154/89 (mmHg) O2 Sat by Pulse 96 Oximetry Oxygen Devices in Use Now: None Appearance: NAD, sitting up in a chair Eyes: No Scleral Icterus, PERRLA Ears/Nose/Mouth/Throat: Mucous Membranes Moist Respiratory: Symmetrical Chest Expansion and Respiratory Effort, Clear to Auscultation Cardiovascular: NL Sounds; No Murmurs; No JVD, RRR Abdominal: NL Sounds; No Tenderness; No Distention Extremities: - - Mild edema to bilateral hands Skin: No Rash or Ulcers Neurological: Alert and Oriented x 3, - - Mild left hand rn lpn lvn weakness. Smile symmetric, tongue midline, LE strength equal, able to perform bilateral finger to nose. Speech is sometimes slow and forced. Lines/Tubes/Other Access: Clean, Dry and Intact Peripheral IV - site benign Nutrition: Taking PO's Result Diagrams: 01/11/17 04:28 01/12/17 05:30 Additional Lab and Data: Microbiology and Other Data: Microbiology 01/10/17 18:00 Nasal Screen MRSA (PCR)(CARI) - Final Nasal Mrsa Positive Assess/Plan/Problems-Billing Assessment: Mr. Medrano is a 46 yo male with PMH significant for HTN and DM who presented to the hospital with intermittent issues with speech and weakness. - Patient Problems (1) Weakness Code(s): R53.1 - WEAKNESS SNOMED Code(s): 91836641 Comment: - Left sided weakness again overnight last night, continues to have slight left hand rn lpn lvn weakness - Continues to have slow but clear speech, improved - Repeat brain CT overnight with no acute findings - Brain MRI with no acute findings - Will ask neuro to see Pt again (2) Speech abnormality Comment: - Continues to have slow but clear speech, improved - Able to pass swallow eval (3) HLD (hyperlipidemia) Code(s): E78.5 - HYPERLIPIDEMIA, UNSPECIFIED SNOMED Code(s): 13550592 Comment: - Triglycerides 4675 on admission and 2692 fasting. - Started on Lopid (4) Electrolyte abnormality Code(s): E87.8 - OTH DISORDERS OF ELECTROLYTE AND FLUID BALANCE, NEC SNOMED Code(s): 822831580 Comment: - Hyperkalemia - Resolved - Hyponatremia - Improved after IVFs (5) LADAN (acute kidney injury) Code(s): N17.9 - ACUTE KIDNEY FAILURE, UNSPECIFIED SNOMED Code(s): 62719713 Comment: - Resolved after IVFs (6) HTN (hypertension) Code(s): I10 - ESSENTIAL (PRIMARY) HYPERTENSION SNOMED Code(s): 37176827 Comment: - Normotensive - Continue to hold lisinopril/HCTZ (7) Diabetes Code(s): E11.9 - TYPE 2 DIABETES MELLITUS WITHOUT COMPLICATIONS SNOMED Code(s) : 84174130 Comment: - Glucose checks AC/HS - Hold home metformin - HgA1C - 9.8 - Continue Lispro SS (8) DVT prophylaxis Code(s): ALJ6918 - SNOMED Code(s): 543908735 Comment: - SQ heparin (9) Full code status Code(s): Z78.9 - OTHER SPECIFIED HEALTH STATUS SNOMED Code(s): 772282510 Status and Disposition: Inpatient. Discharge to home when medically stable.
[2017-01-13] MEDS: Acetaminophen ADULT LIQ* 650 MG/20.3 ML UDC PO PRN (03:08)
[2017-01-13] MEDS: Heparin VIAL(*) 5000 UNITS/ML VIAL (FIVE THOUSAND) SUBCUT SCH ×3 (06:08→21:30)
[2017-01-13] MEDS: Insulin LISPRO* 1 UNITS UNIT SUBCUT SCH ×4 (08:02→21:29)
[2017-01-13] MEDS: Gemfibrozil TAB* 600 MG PO SCH ×2 (08:03→20:56)
--- NOTE | 2017-01-13 10:32 | PN ---
NEUROLOGICAL FOLLOWUP: DATE OF SERVICE: 01/12/17 HISTORY: I was asked by Alissa Horowitz, IRMA, to see this patient again today because he had some additional speech problems, although he was doing better actually when I saw him. He also had some, what he described as, numbness and possible weakness in his legs overnight; although I did not notice his leg weakness today and he said it was numbness. He told me that in the past , while at home, he has had difficulty with verbal output, this is brief, but since Wednesday this has been a much more prominent symptom and it has fluctuated and at times he is normal. Family history, social history, and past medical history is unchanged. MEDICATIONS: Includes: 1. Insulin. 2. Gemfibrozil. PHYSICAL EXAMINATION: Vital signs: Temperature 97.8, pulse 84, respirations 18 , and blood pressure 137/87. He was alert and oriented, with normal speech and normal comprehension. He had an odd speech pattern where the speech was at times halting, but at times smoother. I asked him to count backwards and forwards and he was able to speak smoothly during some of these tests. Rest of the exam including cranial nerves were normal. Strength was 5/5, reach for objects. Chest: Clear. Cardiovascular: Regular rate and rhythm. Abdomen: Soft, with positive bowel sounds. DIAGNOSTIC STUDIES/LAB DATA: He has had a normal MRI scan. He had a CTA on the while he was symptomatic, which was normal, of the head and neck. Dr. 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 His MRI scan did not show any signs of CPM and he had a low sodium initially. ASSESSMENT AND PLAN: It seems that Mr. Medrano's speech pattern is unusual and I wonder if there is a functional component to it; however, he has significant medical problems. Given the episodic nature, we will obtain an EEG to as screening procedures, but I do not think that this is likely to be seizure. This is not a pattern that is likely to be focal ischemic disease either. We will see what the EEG shows and then go from there. Discussed my thoughts with both him and his . [id number]/[facility] #: [id number] [facility]
--- NOTE | 2017-01-13 11:57 | PN ---
Subjective Date of Service: 01/13/17 Interval History: Patient seen and examined at bedside. Pt states that he is feeling better, no reports of left sided weakness since the night prior. Pt continues to have intermittent trouble with his speech with delayed, forced speech. Denies fever, chills, shortness of breath, chest discomfort, or N/V/D. Pt reports that his gait is slower than normal. Pt also states that he has a lot of stress in his life in regards to his job. Tele: Sinus rhythm, rate 80's. Family History: Unchanged from Admission Social History: Unchanged from Admission Past Medical History: Unchanged from Admission Objective Active Medications: Acetaminophen (Tylenol Adult Liq*) 650 mg PO Q6H PRN Reason: pain/fever Al Hydrox/Mg Hydrox/Simethicone (Maalox Plus*) 30 ml PO Q6H PRN Reason: INDIGESTION Dextrose (D50w Syringe 50 Ml*) 12.5 gm IV PUSH .FOR FS < 60 - SS PRN Reason: FS < 60 Gemfibrozil (Lopid Tab*) 600 mg PO BID [facility]ACE Heparin Sodium (Porcine) (Heparin Vial(*)) 5,000 units SUBCUT Q8HR [facility] Insulin Human Lispro (Humalog*) 0 units SUBCUT ACHS [facility] Reason: Protocol Vital Signs 01/12/17 01/12/17 01/12/17 11:56 15:07 15:28 Temperature 97.6 F 97.6 F Pulse Rate Respiratory 18 Rate Blood Pressure 133/88 (mmHg) O2 Sat by Pulse 96 Oximetry 01/12/17 01/12/17 01/12/17 19:41 20:00 23:25 Temperature 97.8 F Pulse Rate Respiratory 18 Rate Blood Pressure 137/87 137/89 (mmHg) O2 Sat by Pulse 96 Oximetry 01/12/17 01/13/17 01/13/17 23:28 03:13 04:00 Temperature 97.8 F 97.4 F Pulse Rate 87 74 Respiratory 18 16 Rate Blood Pressure 139/93 (mmHg) O2 Sat by Pulse 96 Oximetry 01/13/17 01/13/17 01/13/17 07:40 08:00 08:04 Temperature 98.0 F Pulse Rate Respiratory 18 Rate Blood Pressure 141/89 (mmHg) O2 Sat by Pulse 95 Oximetry 01/13/17 09:18 Temperature 97.4 F Pulse Rate 72 Respiratory 18 Rate Blood Pressure 142/95 (mmHg) O2 Sat by Pulse 97 Oximetry Oxygen Devices in Use Now: None Appearance: NAD, laying in bed Eyes: No Scleral Icterus, PERRLA Ears/Nose/Mouth/Throat: Mucous Membranes Moist Respiratory: Symmetrical Chest Expansion and Respiratory Effort, Clear to Auscultation Cardiovascular: NL Sounds; No Murmurs; No JVD, RRR Abdominal: NL Sounds; No Tenderness; No Distention Extremities: No Edema Skin: No Rash or Ulcers Neurological: Alert and Oriented x 3, NL Muscle Strength and Tone, - - Smile symmetric, hand rod buster 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 Medrano is a 46 yo male with PMH significant for HTN and DM who presented to the hospital with intermittent issues with speech and weakness. - Patient Problems (1) Weakness Code(s): R53.1 - WEAKNESS SNOMED Code(s): 82915831 Comment: - No further weakness - Continues to have slow but clear speech, improved - Repeat brain CT with no acute findings - Brain MRI with no acute findings - Will check EEG - Suspect this may be stress related (2) Speech abnormality Comment: - Continues to have slow but clear speech, improved - Able to pass swallow eval (3) HLD (hyperlipidemia) Code(s): E78.5 - HYPERLIPIDEMIA, UNSPECIFIED SNOMED Code(s): 31971471 Comment: - Triglycerides 4675 on admission and 2692 fasting. - Continue Lopid (4) Electrolyte abnormality Code(s): E87.8 - OTH DISORDERS OF ELECTROLYTE AND FLUID BALANCE, NEC SNOMED Code(s): 115383047 Comment: - Hyperkalemia - Resolved - Hyponatremia - Improved after IVFs (5) LADAN (acute kidney injury) Code(s): N17.9 - ACUTE KIDNEY FAILURE, UNSPECIFIED SNOMED Code(s): 55775222 Comment: - Resolved after IVFs (6) HTN (hypertension) Code(s): I10 - ESSENTIAL (PRIMARY) HYPERTENSION SNOMED Code(s): 44807482 Comment: - Normotensive - Resume lisinopril/HCTZ (7) Diabetes Code(s): E11.9 - TYPE 2 DIABETES MELLITUS WITHOUT COMPLICATIONS SNOMED Code(s) : 68859749 Comment: - Glucose checks AC/HS - Hold home metformin - HgA1C - 9.8 - Continue Lispro SS (8) DVT prophylaxis Code(s): CCM7001 - SNOMED Code(s): 558839140 Comment: - SQ heparin (9) Full code status Code(s): Z78.9 - OTHER SPECIFIED HEALTH STATUS SNOMED Code(s): 474747078 Status and Disposition: Inpatient. Discharge to home when medically stable.
[2017-01-13] MEDS ORDERED: LORazepam TAB(*) 0.5 MG PO PRN (15:08)
--- NOTE | 2017-01-13 22:51 | PN ---
NEUROLOGICAL FOLLOWUP: DATE OF VISIT: DATE OF DICTATION: 01/13/2017. HISTORY: When I saw him this afternoon, he was having an episode of forced speech. He had some irregular breathing with this as well with some possible hyperventilation. He did describe a little bit of tingling in his hands, but he denied any shortness of breath, chest pain, or anxiety. He had no problems naming or with cognition during this. He had some complaints to left-sided weakness, but his weakness fluctuated during the exam and at the strongest he was at 5/5 strength in the left arm as well as the right, but he moved extremely slowly with his left, but reached the objects smoothly. MEDICATIONS: Unchanged. PHYSICAL EXAMINATION: On exam, temperature 97.4, pulse 84, respiratory rate 18 , and blood pressure 142/95. He is alert and oriented. Speech was as described. Naming was intact. Cranial nerves II through XII were intact. Motor exam revealed normal tone and strength and with further comments as above. Chest: Clear. Cardiovascular: Regular rate and rhythm. DIAGNOSTIC STUDIES: EEG was normal during this event. ASSESSMENT: I think that this maybe some stress-related phenomena possibly going on. A small dose of benzodiazepine maybe helpful and whether he needs counseling or a psychiatrist, I defer to the Hospitalist. I do not think he needs any further neurological testing at this time. Thank you for sharing his case. [id number]/[facility] #: [id number] RODOLFOD
--- NOTE | 2017-01-14 00:21 | EEG ---
ELECTROENCEPHALOGRAPHY: DATE OF STUDY: DATE OF DICTATION: 01/13/17 - ROOM #[id number] PATIENT OF: Alissa Horowitz NP. HISTORY: This is a 46-year-old man being evaluated for episodes of speech problems often when he wakes. MEDICATIONS: Include: 1. Maalox. 2. Lopid. 3. Humalog. 4. Heparin. REPORT: With the patient awake, background cerebral activity consists of moderate amplitude 8 to 10 Hz rhythm and when the patient briefly falls asleep this background consisting of delta and theta activity. When the patient wakes , he has a typical episode of forceful speaking and feels like he cannot move his arms up and feeling heavy. He was crying at one point. There is no change in his awake cerebral background during this time and actually I saw him during this and did an evaluation and there was no change in background throughout this episode. No epileptiform potentials, focal abnormalities or major asymmetries of background are noted. IMPRESSION: This awake and asleep EEG is within normal limits including during one of the patient's typical episode. [id number]/[facility] #: [id number] [facility]
[2017-01-14 02:23] VITALS: BP 136/90
[2017-01-14] MEDS: Heparin VIAL(*) 5000 UNITS/ML VIAL (FIVE THOUSAND) SUBCUT SCH ×2 (06:18→13:49)
[2017-01-14] MEDS: Acetaminophen ADULT LIQ* 650 MG/20.3 ML UDC PO PRN (06:24)
[2017-01-14] MEDS ORDERED: Hydrochlorothiazide TAB* 25 MG PO SCH (09:00)
[2017-01-14] MEDS ORDERED: Lisinopril TAB* 10 MG PO SCH (09:00)
[2017-01-14] MEDS: Gemfibrozil TAB* 600 MG PO SCH (09:45)
[2017-01-14] MEDS: Insulin LISPRO* 1 UNITS UNIT SUBCUT SCH ×2 (09:46→13:48)
--- NOTE | 2017-01-14 12:22 | PN ---
Subjective Date of Service: 01/14/17 Interval History: Patient seen and examined at bedside. Pt states that he doesn't feel stressed or anxious since being in the hospital. He continues to feel like his speech comes and goes and he has some stuttering. Denies fever, chills, shortness of breath, chest discomfort, or N/V/D. Pt has not had left sided weakness since yesterday afternoon. Pt has been up and ambulating in the room. Discussed with Pt setting up an appointment with a Psychiatrist or counselor as an outpatient could be helpful for dealing with his stress and possible anxiety. Pt will take the information and call for an appointment if he decides he wants to see someone. Pt also encouraged to talk with Dr. Harper. Tele: Sinus rhythm, rate 80-100's. Family History: Unchanged from Admission Social History: Unchanged from Admission Past Medical History: Unchanged from Admission Objective Active Medications: Acetaminophen (Tylenol Adult Liq*) 650 mg PO Q6H PRN Reason: pain/fever Al Hydrox/Mg Hydrox/Simethicone (Maalox Plus*) 30 ml PO Q6H PRN Reason: INDIGESTION Dextrose (D50w Syringe 50 Ml*) 12.5 gm IV PUSH .FOR FS < 60 - SS PRN Reason: FS < 60 Gemfibrozil (Lopid Tab*) 600 mg PO BID GRACE Heparin Sodium (Porcine) (Heparin Vial(*)) 5,000 units SUBCUT Q8HR [facility] Hydrochlorothiazide (Hydrodiuril Tab*) 12.5 mg PO DAILY [facility] Insulin Human Lispro (Humalog*) 0 units SUBCUT ACHS [facility] Reason: Protocol Lisinopril (Prinivil Tab*) 10 mg PO DAILY [facility] Reason: Protocol Lorazepam (Ativan Tab(*)) 0.5 mg PO BID PRN Reason: ANXIETY Vital Signs 01/13/17 01/14/17 01/14/17 20:00 00:00 08:00 Temperature 98.7 F Pulse Rate 77 Respiratory 18 16 16 Rate Blood Pressure 136/90 (mmHg) O2 Sat by Pulse 97 96 96 Oximetry Oxygen Devices in Use Now: None Appearance: NAD, sitting up on the side of the bed Eyes: No Scleral Icterus, PERRLA Ears/Nose/Mouth/Throat: Mucous Membranes Moist Respiratory: Symmetrical Chest Expansion and Respiratory Effort, Clear to Auscultation Cardiovascular: NL Sounds; No Murmurs; No JVD, RRR Abdominal: NL Sounds; No Tenderness; No Distention Extremities: No Edema Skin: No Rash or Ulcers Neurological: Alert and Oriented x 3, - - Occasional forced and slow speech Lines/Tubes/Other Access: Clean, Dry and Intact Peripheral IV - x 2, site benign Nutrition: Taking PO's Result Diagrams: 01/11/17 04:28 01/12/17 08:14 Additional Lab and Data: Microbiology and Other Data: Microbiology 01/10/17 18:00 Nasal Screen MRSA (PCR)(CARI) - Final Nasal Mrsa Positive Assess/Plan/Problems-Billing Assessment: Mr. Medrano is a 46 yo male with PMH significant for HTN and DM who presented to the hospital with intermittent issues with speech and weakness. - Patient Problems (1) Weakness Code(s): R53.1 - WEAKNESS SNOMED Code(s): 71460559 Comment: - No further weakness - Continues to have slow but clear speech, improved - Repeat brain CT with no acute findings - Brain MRI with no acute findings - EEG WNL - Suspect this may be stress related (2) Speech abnormality Comment: - Continues to have slow but clear speech, improved (3) HLD (hyperlipidemia) Code(s): E78.5 - HYPERLIPIDEMIA, UNSPECIFIED SNOMED Code(s): 88117378 Comment: - Triglycerides 4675 on admission and 2692 fasting. - Continue Lopid (4) Electrolyte abnormality Code(s): E87.8 - OTH DISORDERS OF ELECTROLYTE AND FLUID BALANCE, NEC SNOMED Code(s): 184541418 Comment: - Hyperkalemia - Resolved - Hyponatremia - Improved after IVFs (5) LADAN (acute kidney injury) Code(s): N17.9 - ACUTE KIDNEY FAILURE, UNSPECIFIED SNOMED Code(s): 98586628 Comment: - Resolved after IVFs (6) HTN (hypertension) Code(s): I10 - ESSENTIAL (PRIMARY) HYPERTENSION SNOMED Code(s): 31966707 Comment: - Normotensive - Continue lisinopril/HCTZ (7) Diabetes Code(s): E11.9 - TYPE 2 DIABETES MELLITUS WITHOUT COMPLICATIONS SNOMED Code(s) : 97963480 Comment: - Glucose checks AC/HS - HgA1C - 9.8 - Resume home metformin (8) DVT prophylaxis Code(s): JZD2345 - SNOMED Code(s): 141967702 Comment: (9) Full code status Code(s): Z78.9 - OTHER SPECIFIED HEALTH STATUS SNOMED Code(s): 450390209 Status and Disposition: Inpatient. Stable for discharge to home today.
--- NOTE | 2017-01-15 07:29 | DS ---
DISCHARGE SUMMARY: DATE OF ADMISSION: 01/10/17 DATE OF DISCHARGE: 01/14/17 ATTENDING PHYSICIAN: Dr. Donnie Lopez *(dictated by Danial Quiñones NP). PRIMARY CARE PROVIDER: Dr. Ta Harper. PRIMARY DIAGNOSES: 1. Left-sided weakness and difficulty with speech, suspect related to stress and anxiety. 2. Hypertriglyceridemia. SECONDARY DIAGNOSES: 1. Hypertension. 2. Juo-oxiamjd-jjzojqljz diabetes. CONSULTATIONS WHILE IN THE HOSPITAL: Dr. Joni Gordon and Dr. Phillip Valadez with Neurology. STUDIES WHILE IN THE HOSPITAL: 1. Brain CT on 01/10/17 at 1436. Radiologist's impression: Normal CT of the brain. 2. Chest x-ray on 01/10/17. Radiologist's impression: No radiographic evidence for acute cardiopulmonary abnormality on this portable chest x-ray. 3. Head CTA on 01/10/17. Radiologist's impression: Normal CT angiography of the head and neck. 4. Brain CT on 01/10/17 at 2302. Radiologist's impression: No acute intracranial findings or interval changes. 5. Brain MRI on 01/11/17. Radiologist's impression: No restricted diffusion to suggest acute infarct. Normal brain. 6. Electroencephalogram on 01/13/17. Neurologist's impression: This awake and asleep EEG is within normal limits including during one of the patient's typical episode. DISCHARGE MEDICATIONS: New home medications: 1. Gemfibrozil 600 mg oral twice daily. Continued home medications: 1. Lisinopril/hydrochlorothiazide 10/12.5 one tablet oral daily. 2. Metformin 500 mg oral twice daily. 3. Multivitamin 1 tablet oral daily. 4. Ibuprofen 800 mg oral every 8 hours as needed for fever or pain. HISTORY OF PRESENT ILLNESS/HOSPITAL COURSE: Mr. Medrano is a 46-year-old male with past medical history significant for hypertension and diabetes, who presented to the hospital with concerns for difficulty speaking and weakness. The patient reported his symptoms had started the morning before and prior to that he had been in his normal state of health. The patient reports needing to write down words to communicate with his . He also reported feeling very weak and tired and described he was feeling too tired to even speak. Later that morning, the patient had somewhat of an improvement, was able to make clear speech, but he decided to present to [facility] for further evaluation. While at [facility], the patient had a brain CT that showed no acute abnormality. He had labs including a basic metabolic panel, which showed no acute abnormalities. Based on this and the resolution of the patient's symptoms , he was discharged from the emergency room. The patient's then states that the patient awoke again with the same problem and inability to speak. She encouraged him to take a shower in hopes that he would improve. However, while he was going to get in the shower he was too weak to independently get to there and his had to help him get dressed. They got into a car and presented to [facility] for further evaluation. It is to note that on their way here, the patient suddenly became weak in his legs and again had difficulty speaking. While in the emergency room, Mr. Medrano was able to speak though he was having some difficulty initiating his speech. He was appropriate and there was no signs of confusion. He was seen in consultation by Neurology, who felt that this was not a neurological event. He had a CT of his brain and had CTA that both were negative. The patient had markedly abnormal labs when compared to his labs the previous day at [facility]. The patient's arrival sodium was 119, potassium 6.3, creatinine 1.5, lactic acid 3.3, triglyceride level of 4675. When these labs were repeated in an hour later, the patient had a sodium of 120, potassium 7.0, creatinine 1.70. When this was reviewed with the lab, the patient's blood was noted to be overtly and severely lipemic. Based off the patient's presentation, the hospitalists were asked to evaluate the patient for admission. During the patient's hospital stay, he was initially admitted to intensive care unit where he received IV hydration to assist with his acute kidney injury and concomitant hyperkalemia. There was hopes that after hydration the patient's blood sample would become less lipemic and the results from the analyzer could be more accurate. The patient was initially treated with Kayexalate, calcium gluconate, and dextrose for his hyperkalemia. The patient was seen by Dr. Gordon from Neurology who found no focal neurological deficits and suspected the patient's symptoms could be related to his electrolyte abnormalities. The patient was monitored overnight in the intensive care unit and by that evening the patient labs have improved with a sodium of 127, potassium of 4.9. It is to note around 2300 on 01/10, the patient developed left-sided weakness. He had a repeat CT scan showing no acute findings. The patient had repeat labs at a similar timeframe showing new sodium of 127 and a potassium of 4.9. Per the next morning, the patient's labs were normalizing with a sodium of 129 and a potassium of 4.1, his creatinine was then 0.62. It was felt that some of the patient's electrolyte abnormalities were related to the lipemic state of the patient's blood. He had repeat fasting lipids showing a triglycerides of 2692, a cholesterol of 305. The patient had been started on gemfibrozil for his hypertriglyceridemia. The patient was again seen in consultation by Dr. Valadez, as he continued to have intermittent left-sided weakness and difficulty with his speech. Dr. Valadez felt that the patient's speech pattern was unusual and wondered if there was a functional component, although he had no other significant medical problems. He recommended an EEG to rule out seizure. The patient underwent an EEG on January 13 with no significant findings. This EEG was done during one of the patient's typical episodes. There was no sign of seizure activity. Dr. Valadez with Neurology felt that there maybe a stress-related phenomenon going on. The patient continued to do well to the point that his speech is returned close to his baseline today, it is less slowed and forced. The patient reports intermittent left-sided weakness, although there is no focal weakness on exam today. It has been recommend to Mr. Medrano that he have outpatient appointment with Psychiatry and he has been instructed to call Manjit Amor at the [facility] for an intake phone interview for his initial appointment, he has been provided with the phone number. Mr. Medrano is stable for discharge to home today. Vital signs are as follows; temperature 98.7, heart rate 77, respiratory rate 16, O2 sat 96% on room air, blood pressure 136/90. DISCHARGE PLAN: Mr. Medrano will be discharged to home. Activity as tolerated. He has been encouraged to eat a heart-healthy, consistent carbohydrate diet. He has been asked to avoid alcohol, sweets and carbohydrate to assist with his hypertriglyceridemia. The patient has been encouraged to ambulate and get exercise and work on weight management. The patient may benefit from an outpatient sleep study and he was not noted to have apneic episodes here, but feels that he is not getting restful sleep. For the patient's hypertriglyceridemia, he has been started on gemfibrozil twice daily. For his hypertension, he has been continued on his home medications. Again, the patient has a followup appointment with Dr. Harper on Wednesday, January 18 at 2 p.m. He has been also asked to call [facility] with Manjit Amor for an intake phone interview to help him with his stress. It is suspected that the patient's speech delays and left-sided weakness were related to stress. He has been encouraged to work on stress reduction, exercise and weight loss. The patient has been asked to return to the emergency room for shortness of breath, chest discomfort, or signs of a stroke such as facial drooping, one-sided weakness or difficulty speaking. This is a summarized report of a complex medical history and hospital stay. For further details, please see the entire medical record. TIME SPENT: Time for this discharge was 50 minutes, and greater than half of that was spent [id number] with the patient discussing discharge plans and instructions. CONDITION ON DISCHARGE: Stable. DANIAL QUIÑONES NP CC: Dr. Ta Harper* [id number]/[facility] #: [id number] MICAELA
== END 2017-01-14 17:51 | disposition home or self-care (01) | DRG 642 ==
LOC: ED 14:25 → ICU 17:00 → MEDTELE 01-13 09:01
PROVIDERS: ADMIT Hospitalist; ATTEND Internal Medicine
PROC: 4A00X4Z Measurement of Central Nervous Electrical Activity, External Approach (ICD-10-PCS; principal; 2017-01-13)
DX: E78.1 Pure hyperglyceridemia (principal); N17.9 Acute kidney failure, unspecified; E11.65 Type 2 diabetes mellitus with hyperglycemia; E87.5 Hyperkalemia; E87.1 Hypo-osmolality and hyponatremia; I10 Essential (primary) hypertension; R29.703 NIHSS score 3; E78.5 Hyperlipidemia, unspecified; R53.1 Weakness; F43.9 Reaction to severe stress, unspecified; F41.9 Anxiety disorder, unspecified; Z82.49 Family history of ischemic heart disease and other diseases of the circulatory system; Z80.8 Family history of malignant neoplasm of other organs or systems; Z83.3 Family history of diabetes mellitus; Z79.84 Long term (current) use of oral hypoglycemic drugs
CPT/HCPCS: 36415; 70450; 70496; 70498; 70551; 71010; 80048; 80053; 80061; 81003; 82533; 83036; 83605; 83690; 83930; 83935; 84300; 84443; 84484; 85025; 86850; 86900; 86901; 87641; 93005; 95812; A9270-GY; J0610; J1644; Q9967

== ENCOUNTER 2018-05-04 07:08 | Day surgery (SDC) | payer BC ==
--- NOTE | 2018-04-13 06:51 | HP ---
CC: Dr. Ta Harper * PREOPERATIVE HISTORY AND PHYSICAL: DATE OF ADMISSION/SURGERY: 05/04/18 This patient is scheduled for same-day surgery admission by Dr. Mancilla on 05/04/18. DATE OF PREOPERATIVE HISTORY AND PHYSICAL EXAMINATION: 04/12/18. ATTENDING SURGEON: Dr. Jagdeep Mancilla * (dictated by Kimi Zuñiga NP) CHIEF COMPLAINT: Umbilical hernia. HISTORY OF PRESENT ILLNESS: The patient is a 47-year-old diabetic male, who presented to [facility] for evaluation of a longstanding umbilical hernia. More recently, it has been uncomfortable and prevents him from doing his regular activities. He denies any signs or symptoms to suggest incarceration or strangulation. Dr. Mancilla has examined the patient and notes an obvious umbilical bulge, which is easily reducible and is just over [address] Mancilla has recommended open umbilical hernia repair with mesh and described the nature of the surgical procedure, the typical same-day surgery, the relevant risks and benefits, and today, I reviewed the expected postoperative care and recovery. The patient has had a chance to ask questions and stated that he understands the information and is satisfied with the answers given to his questions. He will sign surgical consent on the day of surgery. PAST MEDICAL HISTORY: Type 2 diabetes; sleep apnea, worked up by Dr. Mays and the patient declined CPAP; conversion disorder, diagnosed January 2017; kidney stones in 1992. PAST SURGICAL HISTORY: Bunionectomy, 1992 and retrieval of kidney stones, 1992. MEDICATIONS: 1. Gemfibrozil 600 mg p.o. b.i.d. 2. Metformin 1000 mg p.o. b.i.d. and he will hold his evening dose on the day before surgery. 3. Lisinopril 10 mg with hydrochlorothiazide 12.5 mg 1 tablet daily. 4. Glipizide 5 mg p.o. every 12 hours. 5. Multivitamin daily. 6. Ibuprofen 800 mg daily as needed. 7. Proventil inhaler as needed. ALLERGIES: No known drug allergies. FAMILY HISTORY: No known anesthesia complications, bleeding tendencies, or clotting disorders. Mother's side had multiple relatives with type 2 diabetes. Father's side with heart disease. SOCIAL HISTORY: He is . He is not currently working. He is a nonsmoker , and denies the use of alcohol or other substances. REVIEW OF SYSTEMS: Constitutional: No fevers, chills, excessive fatigue, or weight loss. Endocrine: Type 2 diabetes, fingersticks at home in the morning ranges between 170 and 220 and he is working with his primary care provider, Dr. Harper, to lower his blood sugar. No known thyroid disease. Hematologic: No easy bruising or bleeding. No history of blood transfusions. Respiratory : No dyspnea on exertion. No chronic cough. Cardiovascular: No anginal chest pain or palpitations. Gastrointestinal: No nausea, vomiting, diarrhea, GI bleeding, or constipation. Genitourinary: No dysuria. Musculoskeletal: Mild lower back pain. Neurologic: He walks with a cane and has symptoms of conversion disorder that manifest as disability and inability to find words without any organic disease. He states that upon awakening, it takes him about 30 minutes to get going. He does have some left-sided weakness and uses a cane for stability. General: No previous anesthesia complications. No history of deep vein thrombosis or pulmonary embolism. PHYSICAL EXAMINATION GENERAL SURVEY: The patient is a 47-year-old, obese male, well developed, in no acute distress. VITAL SIGNS: Height 68.5 inches, weight 232 pounds, body mass index 34.8. Blood pressure 140/90, pulse 88 and regular, respiratory rate 18, temperature 97.3 tympanic. HEENT: Benign. NECK: Supple. No cervical lymphadenopathy. LUNGS: Breath sounds bilaterally clear and equal. HEART: Regular rate and rhythm. No murmurs or rubs appreciated. ABDOMEN: Obese. Active bowel sounds. Obvious umbilical bulge that is easily reducible and the hernia is just over 1 cm. No other hernias are noted. No overlying skin changes, minimally tender on deep palpation. No organomegaly. GENITALIA: Exam deferred. RECTAL: Exam deferred. BACK: No CVA tenderness. EXTREMITIES: Warm without edema or skin ulceration. NEUROLOGIC: Alert and oriented x3. His speech is clear. He is walking with a cane with stability. SKIN: Warm, dry, intact. IMPRESSION: Umbilical hernia. PLAN: Same-day surgery admission to Dr. Mancilla's service for open umbilical hernia repair with mesh on 05/04/18. SHARRI ZUÑIGA, INTELLIGENT SYSTEMS ENGINEER [id number]/[facility] #: [id number] MICAELA
[~2018-05-04 07:08] MED LIST: Buffered Lidocaine 0.9% SYRIN* 5 ML/SYR SYRINGE INTRADERM ONE; Famotidine IV* 10 MG/ML 2 ML (20 mg) IV ONE; Metoclopramide IV* 5 MG/ML 2 ML VIAL IV SLOW PU ONE
[2018-05-04] MEDS ORDERED: Metoclopramide IV* 5 MG/ML 2 ML VIAL ONE (07:52)
[2018-05-04] MEDS ORDERED: Famotidine IV* 10 MG/ML 2 ML (20 mg) ONE (07:52)
[2018-05-04] MEDS ORDERED: ceFAZolin 2 GM PREMIX in ORs 2 GM/50 ML BAG IVPB ONE (07:53)
[2018-05-04] MEDS ORDERED: Midazolam* 1 MG/ML 2 ML VIAL (2 MG) ONE (08:05)
[2018-05-04] MEDS ORDERED: fentaNYL* 50 MCG/ML 2 ML VIAL (100 MCG VIAL) ONE (08:05)
[2018-05-04] MEDS ORDERED: Lidocain 1% EPI 1:100,000 * 30 ML MDV ONE (08:22)
[2018-05-04] MEDS ORDERED: Ropivacaine* 2 MG/ML 20 ML VIAL (0.2%) ONE (08:22)
[2018-05-04] MEDS ORDERED: ROPIVACAINE 5 MG/ML 30 ML BTL (0.5%) ONE (08:25)
[2018-05-04] MEDS ORDERED: Insulin REGULAR(*) 1 UNITS UNIT IV PUSH ONE (08:30)
[2018-05-04] MEDS ORDERED: Insulin REGULAR(*) 1 UNITS UNIT ONE (08:34)
[2018-05-04] MEDS ORDERED: Propofol* 10 MG/ML 20 ML BTL IV PUSH ONE (09:21)
[2018-05-04] MEDS ORDERED: Acetaminophen TAB* 325 MG PO PRN (09:22)
[2018-05-04] MEDS ORDERED: Naloxone* 0.4 MG/ML 1 ML VIAL IV PRN (09:22)
[2018-05-04] MEDS ORDERED: oxyCODONE/Acetamin 5/325 MG* TAB PO PRN (09:22)
[2018-05-04] MEDS ORDERED: fentaNYL* 50 MCG/ML 2 ML VIAL (100 MCG VIAL) IV PRN (09:22)
[2018-05-04] MEDS ORDERED: Ondansetron INJ* 2 MG/ML VIAL IV PRN (09:22)
[2018-05-04 11:20] VITALS: BP 132/95
--- NOTE | 2018-05-26 14:58 | OP ---
CC: Primary Care Doctor, Ta Harper MD * DATE OF OPERATION: 05/04/18 - [facility] DATE OF : 72. SURGEON: Jagdeep Mancilla M.D. [employer] OPERATOR: Kimi Colon NP ANESTHESIOLOGIST: Dr. Domínguez. ANESTHESIA: Local MAC. PRE-OP DIAGNOSIS: Umbilical hernia. POST-OP DIAGNOSIS: Umbilical hernia. OPERATIVE PROCEDURE: Open umbilical hernia repair with mesh. ESTIMATED BLOOD LOSS: Minimal. FLUIDS: Minimal crystalloid fluid given. SPECIMEN: Hernia sac. DESCRIPTION OF PROCEDURE: The patient was identified in the preoperative area, case was discussed, and the consent signed. He was marked, and brought to the operating room, placed on the operating table in a supine position. Preoperative antibiotics were given. Sequential devices were placed on bilateral lower extremities. Gentle sedation was given and the patient's abdomen was clipped of hair, and prepped and draped in a standard surgical fashion. A time-out was performed. An infraumbilical incision was made. This was deepened down to the anterior fascia inferiorly. We isolated the umbilical skin, placed around a Willard drain and then sharply dissected this from the hernia sac. The edges of the hernia sac was cleaned up right down to its margins. We then excised this and passed it off its specimen, freed up the area around the peritoneal cavity and placed a Bard type umbilical mesh 2.5 inch into the peritoneal cavity. The mesh was then sutured inferiorly and superiorly with an 0 Polysorb suture through the fascia. We then reapproximated some of the loose areolar tissue and some fascia together to cover the mesh. We then tacked down the umbilical skin with a 2-0 Vicryl stitch. We irrigated the wound, achieved hemostasis, reapproximated the skin in a standard fashion. Sterile dressing was applied. The patient tolerated the procedure well, was woken up in the OR, and transferred to the PACU in stable condition. [id number]/[facility] #: [id number] [facility]
== END 2018-05-04 11:53 | disposition home or self-care (01) ==
LOC: OR 07:08
PROVIDERS: ATTEND Surgery
DX: K42.9 Umbilical hernia without obstruction or gangrene (principal); E11.9 Type 2 diabetes mellitus without complications; Z79.84 Long term (current) use of oral hypoglycemic drugs; G47.33 Obstructive sleep apnea (adult) (pediatric); E78.5 Hyperlipidemia, unspecified; E66.9 Obesity, unspecified; M19.90 Unspecified osteoarthritis, unspecified site
CPT/HCPCS: 88302; C1781; J0690; J2250; J2704; J2765; J2795; J3010